=== PATIENT | female | born 1955 | race Caucasian/White ===

== ENCOUNTER → 2024-09-29 | Outpatient (CLI) | payer OTHER | LOC: LAB SHORT 17:31 → LAB 17:31 | DX: B35.1 Tinea unguium (principal); L60.1 Onycholysis | CPT/HCPCS: 87102; 87220 ==

== ENCOUNTER → 2024-09-29 | Outpatient (CLI) | payer OTHER | LOC: LAB 08:21 → LAB SHORT 08:21 | DX: B35.1 Tinea unguium (principal); L60.2 Onychogryphosis | CPT/HCPCS: 88305; 88312 ==